=== PATIENT | male | born 1975 | race African-American/Black ===

== ENCOUNTER 2024-01-23 21:17 | Emergency (ER) | payer MEDICAID ==
[~2024-01-23] VITALS: Ht 177.8 cm; Wt 122.0 kg
== END 2024-01-23 21:40 ==
LOC: ER 21:17 → EDBD 21:17 → ER 21:40
DX: I46.9 Cardiac arrest, cause unspecified (principal); R56.9 Unspecified convulsions
CPT/HCPCS: 31500; 99285